=== PATIENT | male | born 1985 | race Two or more races ===

== ENCOUNTER → 2019-10-02 | Outpatient (CLI) | payer SELFPAY ==
[2019-10-02 17:27] LABS: A TYPE INFLUENZA AG NEGATIVE (NEGATIVE); B INFLUENZA AG NEGATIVE (NEGATIVE)
== END ==
LOC: LAB 16:39
PROVIDERS: ATTEND Nurse Practitioner Family
DX: R50.9 Fever, unspecified (principal)
CPT/HCPCS: 87804